=== PATIENT | male | born 1970 | race African-American/Black ===

== ENCOUNTER 2017-12-30 07:39 | Emergency (ER) | payer MEDICAID ==
[~2017-12-30] VITALS: Ht 180.3 cm; Wt 78.0 kg
[2017-12-30 08:40] VITALS: BP 132/76
== END 2017-12-30 08:52 | disposition home or self-care (01) ==
LOC: ER 08:00
DX: T82.898A Other specified complication of vascular prosthetic devices, implants and grafts, initial encounter (principal); I10 Essential (primary) hypertension; E11.9 Type 2 diabetes mellitus without complications
CPT/HCPCS: 99285